=== PATIENT | female | born 1940 | race Caucasian/White ===

== ENCOUNTER 2020-01-10 08:55 | Outpatient (RCR) | payer MEDICARE ==
[~2020-01-10 08:55] MED LIST: BUMEX1 MG PO; Z HYTRIN PO; Z.0.BENTYL10 MG PO; Z.0.LOTREL 5-10 MG1 PO; Z.0.PLAVIX75 MG PO; [UNRECOGNIZED DRUG - OTHER] PO; [UNRECOGNIZED DRUG - OTHER] PO
--- NOTE | 2020-01-10 15:04 | NUR ---
Pt: Jaylin EvangelistaDr: Jamal Grady MD Date: 01/10/2020DOB: 1940 History: Ms. Evangelista is a 79 year old female seen at the [facility] for a Voice Evaluation with a dx of LPRD/muscle tension dysphonia. PMH includes 9 month history of intermittent episodes of hoarseness, PND, and globus sensation with throat clearing. Throat symptoms ore worse in the morning. Pt experiences one episode of GERD per week. Pt has asthma treated with 3 different inhalers. Pt had flexible fiberoptic nasolaryngoscopy performed 08/21/19 revealing changes in LPRD and change in medication, no change in hoarseness. Pt seen by fur weigher 12/16/19 who recommended vocal/speech therapy. Pt states her hoarseness is improved after eliminating peppermints from her diet. Pt is retired and lives at a alf home. She does not have great vocal demand. Ms. Evangelista denied any difficulty swallowing. Current medications include: Lotrel 5/10 mg, Plavix 75 mg, Hytrin, Lasix 40 mg, Albuterol sulfate, monetlulcast 10 mg, Diltxr 180 mg, Symbacourt 160/4.5, Cholestryamine oral, Spriva, Famotadine 40 mg, Pantoproazole 40 mg Patient/family Goal: to eliminate hoarseness when she speaks Acoustic measures: Sound Pressure Level (SPL, acoustic correlate of vocal loudness) measured with a sound level meter at a distance of 40 cm from mouth during 3 voice and speech tasks revealed the following SPL numbers: Average Range Adult Female Norm SUSTAINED VOWELS: 84 dB 80-85 dB READIN dB 80-85 dB CONVERSATION: 78 dB 80-85 dB SUSTAINED VOWEL 3.5-4.0 seconds 15-25 seconds These results represented almost normal conversational vocal SPL levels and reduced vocal intonation. She also has difficulty with the use of her face mask fatiguing her voice lending to quiet speech. Perceptual measures: Ms. Faust functional speech intelligibility is reduced 10% of the time. The patient reported that she is loud enough in conversation 90% of the time. Completion of the Voice Handicap Index (VHI) reveals a perception of a mild handicap primarily in her perceptual scoring. Her hoarseness is not impeding her communication. Oral Motor Examination: An oral motor speech exam revealed the structures and function of Ms. Faust speech mechanism to be within normal limits. Average pitch range for sustained vowel is reduced, a measure was not obtained at this sitting. Normal pitch range for adult females is 225-335 Hz. 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 Voice deficits included reduced loudness, reduced pitch range, and hoarseness, which contributed to a minimal decrease in speech intelligibility. Prognosis: Good for goals secondary to high level of patient motivation Recommendations: 1. It is recommended that Ms. Evangelista participate in the HEP for head and neck stretching, vocal hygiene education, digital laryngeal manipulation, and extended phonation which is comprised of 3 of voice treatment over the next 30 days. Long-Term Goal: Patient will use a clear and relaxed voice to communicate effectively in daily interactions with family and friends with independence. Short-Term Goals: 1. Patient will increase vocal loudness during sustained phonation to reach a target sound pressure level of 80 dB with minimal cues measured at 40 cm from SPL instrument in conversation, reading and extended phonation exercises. 2. Patient will increase length of sustained vowel to 10-15 seconds with minimal assistance. 3. Pt will participate in daily HEP for head and neck stretching independently to relieve laryngeal tension. 4. Pt will participate in digital laryngeal manipulation with [employer] ADDED ASSESSOR to reduce laryngeal tension. 5. Pt will follow vocal hygiene protocol independently.
== END 2020-01-15 ==
LOC: ST 08:55
PROVIDERS: ATTEND Otolaryngology
DX: R49.0 Dysphonia (principal); K21.9 Gastro-esophageal reflux disease without esophagitis

== ENCOUNTER 2020-02-13 11:49 | Outpatient (RCR) | payer MEDICARE | END 2020-02-15 | LOC: ST 11:49 | PROVIDERS: ATTEND Otolaryngology | DX: R49.0 Dysphonia (principal) ==

== ENCOUNTER 2020-07-27 08:04 | Observation (INO) | payer MEDICARE ==
[~2020-07-27] VITALS: Ht 160 cm; Wt 73.0 kg
[~2020-07-27 08:04] MED LIST changes: +DILTIAZEM 24HR180 M3 PO; +FLONASE ALLERG9.9 ML INH; +FUROSEMIDE40 MG PO; +MONTELUKAST SOD10 MG PO; +PANTOPRAZOLE SO40 MG PO; +PRO AIR INH; +SODIUM CHLORIDE 0.9% 500ML 500 ML ONE; +SPIRIVA18 MCG INH; +TRANEXAMIC ACID 1,000 MG/10 ML ML ONE; +VANCOMYCIN HCL 1,000 MG ONE
[2020-07-27] MEDS ORDERED: ROPIVACAINE 246.25 MG, EPINEPHRINE HCL 1:1000 1ML 0.5 MG, CLONIDINE HCL 0.08 MG in SODI... INJ ONE (08:30)
[2020-07-27] MEDS ORDERED: CELECOXIB 200 MG CAP ONE (08:44)
[2020-07-27] MEDS ORDERED: DEXAMETHASONE SOD PHOS 10 MG/1 ML VIAL ONE (08:44)
[2020-07-27] MEDS ORDERED: GABAPENTIN 300 MG CAP ONE (08:45)
[2020-07-27] MEDS ORDERED: BUPIVACAINE 7.5MG/ML /DEXTROSE 82.5MG/ML 2 ML AMP INJ ONE (09:28)
[2020-07-27] MEDS ORDERED: CEFAZOLIN SOD 1 GM/NS 50ML 100 ML IV ONE (09:41)
[2020-07-27] MEDS ORDERED: VANCOMYCIN HCL 1 GM VIAL ONE (09:49)
[2020-07-27] MEDS ORDERED: DOCUSATE SODIUM 100 MG CAP PO PRN (11:30)
[2020-07-27] MEDS ORDERED: ACETAMINOPHEN 650 MG SUPP PR PRN (11:30)
[2020-07-27] MEDS ORDERED: HYDROCODONE/APAP 7.5MG-325MG 1 EA TAB PO PRN (11:30)
[2020-07-27] MEDS ORDERED: ONDANSETRON HCL INJ 2MG/ML 2ML 2 MG/ML VIAL IV PRN (11:30)
[2020-07-27] MEDS ORDERED: KETOROLAC TROMETHAMINE 30 MG/ML VIAL IV PRN (11:30)
[2020-07-27] MEDS ORDERED: HYDROCODONE/APAP 5MG-325MG TAB PO PRN (11:30)
[2020-07-27] MEDS ORDERED: DIPHENHYDRAMINE HCL INJ 50 MG/ML VIAL IV PRN (11:30)
[2020-07-27] MEDS ORDERED: FENTANYL CITRATE/PF 100MCG/2 ML INJ ONE ×2 (12:50→13:01)
[2020-07-27] MEDS ORDERED: KETAMINE HCL INJ 50 MG/ML 10 ML VIAL ONE (13:01)
[2020-07-27] MEDS ORDERED: MIDAZOLAM HCL 2 MG/2 ML VIAL ONE (13:01)
[2020-07-27 14:04] VITALS: BP 129/71
[2020-07-27 14:05] VITALS: BP 129/71
[2020-07-27] MEDS: SODIUM CHLORIDE 0.9% 1000ML 1,000 ML IV SCH ×2 (14:31→21:30)
[2020-07-27] MEDS ORDERED: ACETAMINOPHEN 1000 MG/100 ML IV PRN (15:00)
[2020-07-27 15:54] VITALS: BP 141/71
[2020-07-27] MEDS ORDERED: CELECOXIB 100 MG CAP PO SCH (17:00)
[2020-07-27] MEDS: CEFAZOLIN SOD 1 GM/NS 50ML 50 ML IV SCH (17:15)
[2020-07-27] MEDS ORDERED: PROPOFOL IV EMULSION 10 MG/ML 20 ML VIAL ONE (17:22)
[2020-07-27] MEDS ORDERED: EPHEDRINE SULFATE INJ 50 MG/ML VIAL ONE (17:22)
[2020-07-27] MEDS ORDERED: ONDANSETRON HCL INJ 2MG/ML 2ML 2 MG/ML VIAL ONE (17:22)
[2020-07-27] MEDS ORDERED: LIDOCAINE HCL 2% LOCAL INJ 5 ML SDV VIAL INJ ONE (17:22)
[2020-07-27 19:48] VITALS: BP 157/98
[2020-07-27 19:50] VITALS: BP 132/70
[2020-07-27] MEDS ORDERED: ZOLPIDEM TARTRATE 5 MG TAB PO PRN (21:00)
[2020-07-27] MEDS ORDERED: CHOLESTYRAMINE PO (21:38)
[2020-07-28 00:18] VITALS: BP 133/81
[2020-07-28] MEDS: CEFAZOLIN SOD 1 GM/NS 50ML 50 ML IV SCH ×2 (02:25→09:17)
[2020-07-28] MEDS ORDERED: SODIUM CHLORIDE 0.9% 250ML 250 ML ONE (02:34)
[2020-07-28 04:00] VITALS: BP 134/72
[2020-07-28 05:12] LABS: HEMATOCRIT 33.7 % (34.2-44.1); HEMOGLOBIN 10.6 g/dL (12.0-16.0)
[2020-07-28] MEDS: SODIUM CHLORIDE 0.9% 1000ML 1,000 ML IV SCH (07:30)
[2020-07-28 08:00] VITALS: BP 139/93
[2020-07-28 08:35] VITALS: BP 139/93
[2020-07-28] MEDS ORDERED: PANTOPRAZOLE SOD 40 MG TABEC PO SCH (09:00)
[2020-07-28] MEDS ORDERED: MONTELUKAST SODIUM 10 MG TAB PO SCH (09:00)
[2020-07-28] MEDS ORDERED: TIOTROPIUM 18 MCG INH POWDER INH SCH (09:00)
[2020-07-28] MEDS ORDERED: CLOPIDOGREL BISULFATE 75 MG TAB PO SCH (09:00)
[2020-07-28 11:48] VITALS: BP 150/89
== END 2020-07-28 13:50 | disposition home or self-care (01) ==
LOC: OR 08:04 → PACU V 11:20 → MED/SURG 13:30
PROVIDERS: ADMIT Specialist; ATTEND Specialist
DX: M16.11 Unilateral primary osteoarthritis, right hip (principal); J45.909 Unspecified asthma, uncomplicated; Z86.73 Personal history of transient ischemic attack (TIA), and cerebral infarction without residual deficits; Z85.828 Personal history of other malignant neoplasm of skin; I10 Essential (primary) hypertension; D64.9 Anemia, unspecified; Z20.822 Contact with and (suspected) exposure to COVID-19; Z01.818 Encounter for other preprocedural examination
CPT/HCPCS: 27130; 36415; 72170; 85014; 85018; 86850; 86900; 86920; 97116 ×2; 97162; 97530; G0378 ×2; J0171; J0690 ×2; J1100; J1200; J2001; J2250; J2405; J2704; J2795; J3010; J3370 ×2; J7030; J7040; J7050; S0164; U0002

== ENCOUNTER → 2020-08-11 | Outpatient (CLI) | payer MEDICARE ==
[~2020-08-11] MED LIST changes: +CHOLESTYRAMINE PO; -SODIUM CHLORIDE 0.9% 500ML 500 ML ONE; -TRANEXAMIC ACID 1,000 MG/10 ML ML ONE; -VANCOMYCIN HCL 1,000 MG ONE
== END ==
LOC: RAD 15:07
PROVIDERS: ATTEND Internal Medicine
DX: R60.0 Localized edema (principal)
CPT/HCPCS: 93971

== ENCOUNTER 2023-08-13 10:58 | Emergency (ER) | payer MEDICARE, OTHER ==
[~2023-08-13] VITALS: Ht 157.5 cm; Wt 66.7 kg
[~2023-08-13 10:58] MED LIST changes: +ACETAMINOPHEN325 M1 PO; +AZITHROMYCIN250 MG PO; +BENZONATATE100 MG PO; +CEFUROXIME250 MG PO; +FUROSEMIDE20 MG PO; +IPRATROPIU0.2 MG/1 M NEB; +LEVALBUTER0.63 MG/3 NEB; +MIRALAX17 GM PO; +MUCINEX600 MG PO; +ONDANSETRON ODT4 MG PO; +PREDNISONE10 MG PO; +PULMICORT2 M1 INH
[2023-08-13 13:24] VITALS: BP 174/84; PULSE 74; RESP 17; O2SAT 100
== END 2023-08-13 13:25 | disposition home or self-care (01) ==
LOC: ER 11:09
DX: I10 Essential (primary) hypertension (principal); J45.909 Unspecified asthma, uncomplicated; K21.9 Gastro-esophageal reflux disease without esophagitis
CPT/HCPCS: 99283

== ENCOUNTER 2023-08-18 20:16 | Inpatient (IN) | payer MEDICARE, OTHER ==
[~2023-08-18] VITALS: Ht 157.5 cm; Wt 66.7 kg
[2023-08-18 20:50] LABS: BASOPHILS # (AUTO) 0.1 (0.0-0.1); BASOPHILS % 0.3 % (0.0-1.0); EOSINOPHILS # (AUTO) 0.1 (0.0-0.4); EOSINOPHILS % 0.7 % (0.0-6.0); HEMATOCRIT 35.5 % (34.2-44.1); HEMOGLOBIN 11.9 g/dL (12.0-16.0); LYMPHOCYTES # (AUTO) 2.2 (1.0-3.2); LYMPHOCYTES % 12.1 % (18.0-39.1); MEAN CORPUSCULAR HEMOGLOBIN 29.3 pg (28-32); MEAN CORPUSCULAR HGB CONC 33.5 g/dL (31-35); MEAN CORPUSCULAR VOLUME 87.4 fL (81-99); MONOCYTES # (AUTO) 1.5 (0.2-0.8); MONOCYTES % 8.3 % (4.4-11.3); NEUTROPHILS # (AUTO) 14.2 (2.1-6.9); NEUTROPHILS % 78.1 % (38.7-80.0); PLATELET COUNT 222 x10e3/uL (140-360); RED BLOOD COUNT 4.06 x10e6/uL (3.6-5.1); RED CELL DISTRIBUTION WIDTH 13.3 % (11.7-14.4); WHITE BLOOD COUNT 18.17 x10e3/uL (4.8-10.8)
[2023-08-18 20:58] LABS: BILIRUBIN,URINE NEGATIVE (NEGATIVE); CLARITY,URINE CLEAR (CLEAR); COLOR,URINE YELLOW (YELLOW); GLUCOSE, URINE NEGATIVE (NEGATIVE); KETONES,URINE NEGATIVE (NEGATIVE); LEUKOCYTE ESTERASE ,URINE NEGATIVE (NEGATIVE); NITRITE,URINE NEGATIVE (NEGATIVE); PH,URINE 6 (5 - 7); PROTEIN,URINE DIPSTICK NEGATIVE (NEGATIVE); URINE UROBILINOGEN 0.2 mg/dL (0.2 - 1)
[2023-08-18] MEDS: ACETAMINOPHEN 325 MG TAB PO STA (20:59)
[2023-08-18] MEDS: SODIUM CHLORIDE 0.9% 1000ML 1,000 ML IV STA ×2 (21:00)
[2023-08-18] MEDS: METRONIDAZOLE 500MG/NS 100ML 100 ML IV SCH (21:00)
[2023-08-18 21:08] LABS: ALANINE AMINOTRANSFERASE 17 IU/L (0-55); ALBUMIN 4.1 g/dL (3.5-5.0); ALBUMIN/GLOBULIN RATIO 1.3 (0.8-2.0); ALKALINE PHOSPHATASE 99 IU/L (40-150); ANION GAP 18.4 mmol/L (8-16); BILIRUBIN,TOTAL 1.1 mg/dL (0.2-1.2); BLOOD UREA NITROGEN 20 mg/dL (7-26); BUN/CREATININE RATIO 19 (6-25); CALCIUM 9.2 mg/dL (8.4-10.2); CARBON DIOXIDE 19 mmol/L (22-29); CHLORIDE 97 mmol/L (98-107); CREATINE KINASE 97 IU/L (29-168); CREATININE, SERUM 1.03 mg/dL (0.57-1.11); EST GLOMERULAR FILTRATION RATE 54 ML/MIN (>=60); GLUCOSE 108 mg/dL (74-118); SODIUM 131 mmol/L (136-145); TOTAL PROTEIN 7.2 g/dL (6.5-8.1)
[2023-08-18 21:09] LABS: POTASSIUM 3.4 mmol/L (3.5-5.1)
[2023-08-18] MEDS ORDERED: IOPAMIDOL 370 MG/ML 100 ML INFUS..BTL INJ ONE (21:15)
[2023-08-18 21:16] LABS: TROPONIN I < 0.001 ng/mL (0-0.300)
[2023-08-18 21:20] LABS: WBC,URINE (MAN) 0-5 /HPF (0-5)
[2023-08-18] MEDS ORDERED: SODIUM CHLORIDE FLUSH 10 ML SYR INJ PRN (23:00)
[2023-08-18 23:05] VITALS: PULSE 87; RESP 20; O2SAT 95
[2023-08-18] MEDS: ALBUTEROL/IPRATROPIUM 3 ML NEB NEB ONE (23:45)
[2023-08-19] VITALS (11 sets, daily range): BP systolic 125–168; BP diastolic 61–74; PULSE 76–107; RESP 18–22; TEMP 97.1–101; O2SAT 92–98
[2023-08-19] MEDS ORDERED: FAMOTIDINE40 MG PO (00:28)
[2023-08-19] MEDS ORDERED: HYDROCHLOROTH12.5 MG PO (00:28)
[2023-08-19] MEDS ORDERED: LOSARTAN POTAS100 MG PO (00:28)
[2023-08-19] MEDS ORDERED: CHOLESTYRAMINE L4 GM PO (00:28)
[2023-08-19] MEDS ORDERED: SPIRIVA RESPIMAT4 GM PO (00:28)
[2023-08-19] MEDS ORDERED: CLONIDINE HCL0.1 MG PO (00:28)
[2023-08-19] MEDS ORDERED: FUROSEMIDE40 MG PO (00:28)
[2023-08-19] MEDS ORDERED: FLUTICASONE-SA1 EAC2 PO (00:28)
[2023-08-19] MEDS ORDERED: CLOPIDOGREL75 MG PO (00:28)
[2023-08-19] MEDS ORDERED: DILTIAZEM 24HR180 M1 PO (00:28)
[2023-08-19] MEDS: ALBUTEROL/IPRATROPIUM 3 ML NEB NEB PRN (04:28)
[2023-08-19 06:51] LABS: ALBUMIN 3.3 g/dL (3.5-5.0); ALBUMIN/GLOBULIN RATIO 1.1 (0.8-2.0); CALCIUM 8.7 mg/dL (8.4-10.2); CREATININE, SERUM 0.84 mg/dL (0.57-1.11); TOTAL PROTEIN 6.4 g/dL (6.5-8.1)
[2023-08-19 07:06] LABS: BASOPHILS # (AUTO) 0.1 (0.0-0.1); BASOPHILS % 0.3 % (0.0-1.0); EOSINOPHILS # (AUTO) 0.1 (0.0-0.4); EOSINOPHILS % 0.7 % (0.0-6.0); HEMATOCRIT 32.3 % (34.2-44.1); HEMOGLOBIN 10.8 g/dL (12.0-16.0); LYMPHOCYTES % 12.8 % (18.0-39.1); MEAN CORPUSCULAR HEMOGLOBIN 29.3 pg (28-32); MEAN CORPUSCULAR HGB CONC 33.4 g/dL (31-35); MEAN CORPUSCULAR VOLUME 87.5 fL (81-99); MONOCYTES # (AUTO) 1.5 (0.2-0.8); MONOCYTES % 9.4 % (4.4-11.3); NEUTROPHILS # (AUTO) 12.1 (2.1-6.9); NEUTROPHILS % 76.3 % (38.7-80.0); PLATELET COUNT 196 x10e3/uL (140-360); RED BLOOD COUNT 3.69 x10e6/uL (3.6-5.1); RED CELL DISTRIBUTION WIDTH 13.3 % (11.7-14.4)
[2023-08-19 08:23] LABS: TROPONIN I 0.009 ng/mL (0-0.300)
[2023-08-19] MEDS: PANTOPRAZOLE SOD 40 MG TABEC PO SCH (10:42)
[2023-08-19] MEDS ORDERED: TIOTROPIUM 18 MCG INH POWDER INH SCH (11:00)
[2023-08-19] MEDS: TIOTROPIUM 18 MCG INH POWDER LEFT EAR SCH (11:15)
[2023-08-19] MEDS ORDERED: Azithromycin IV 500 MG 10 ML VIAL ONE (11:41)
[2023-08-19] MEDS: LOSARTAN POTASSIUM 100 MG TAB PO SCH (11:43)
[2023-08-19] MEDS: DILTIAZEM HCL ER 90MG CAPSULE PO SCH (12:53)
[2023-08-19] MEDS: CLOPIDOGREL BISULFATE 75 MG TAB PO SCH (12:54)
[2023-08-19] MEDS: ACETAMINOPHEN 325 MG TAB PO PRN (13:25)
[2023-08-19] MEDS ORDERED: SALMETEROL/FLUTICASONE 500/50 INH SCH (17:00)
[2023-08-19] MEDS: MONTELUKAST SODIUM 10 MG TAB PO SCH (17:06)
[2023-08-19] MEDS: POTASSIUM CHLORIDE 20 MEQ TAB CR PO STA (17:06)
[2023-08-19] MEDS: BUDESONIDE 0.5MG/2 ML NEB INH SCH (20:01)
[2023-08-19] MEDS: SPIRIVA 2.5 MCG INH SCH (23:03)
[2023-08-20] VITALS (10 sets, daily range): BP systolic 117–168; BP diastolic 59–84; PULSE 85–100; RESP 16–20; TEMP 98.5–100.2; O2SAT 92–100
[2023-08-20 07:37] LABS: CREATINE KINASE 42 IU/L (29-168)
[2023-08-20 07:48] LABS: TROPONIN I < 0.001 ng/mL (0-0.300)
[2023-08-20] MEDS ORDERED: albuterol INH (08:40)
[2023-08-20] MEDS ORDERED: ALBUTEROL 90 MCG/ACT INHALER INH PRN ×2 (09:00→09:30)
[2023-08-20] MEDS ORDERED: MONTELUKAST SODIUM 10 MG TAB PO SCH (09:00)
[2023-08-20] MEDS ORDERED: BENADRYL25 M1 PO (14:28)
[2023-08-20] MEDS: FAMOTIDINE 20 MG TAB PO SCH ×2 (21:00)
[2023-08-20] MEDS: CHOLESTYRAMINE 4 GM PACKET PO SCH (21:00)
[2023-08-20] MEDS: TERAZOSIN HCL 5 MG CAP PO SCH (22:40)
[2023-08-20] MEDS: MONTELUKAST SODIUM 10 MG TAB PO SCH (22:41)
[2023-08-20] MEDS: CLONIDINE HCL 0.1 MG TAB PO SCH (22:41)
[2023-08-20] MEDS ORDERED: GUAIFENESIN 200 MG/10 ML UDC PO PRN (23:30)
[2023-08-21] VITALS (8 sets, daily range): BP systolic 118–153; BP diastolic 60–90; PULSE 82–101; RESP 18–20; TEMP 98.1–100.3; O2SAT 93–96
[2023-08-21 06:01] LABS: BASOPHILS % 0.2 % (0.0-1.0); EOSINOPHILS # (AUTO) 0.1 (0.0-0.4); EOSINOPHILS % 0.6 % (0.0-6.0); HEMATOCRIT 30.3 % (34.2-44.1); HEMOGLOBIN 9.7 g/dL (12.0-16.0); LYMPHOCYTES # (AUTO) 2.7 (1.0-3.2); LYMPHOCYTES % 16.2 % (18.0-39.1); MEAN CORPUSCULAR HEMOGLOBIN 28.6 pg (28-32); MEAN CORPUSCULAR VOLUME 89.4 fL (81-99); MONOCYTES # (AUTO) 1.6 (0.2-0.8); MONOCYTES % 9.7 % (4.4-11.3); NEUTROPHILS # (AUTO) 12.3 (2.1-6.9); NEUTROPHILS % 72.8 % (38.7-80.0); PLATELET COUNT 201 x10e3/uL (140-360); RED BLOOD COUNT 3.39 x10e6/uL (3.6-5.1); RED CELL DISTRIBUTION WIDTH 13.2 % (11.7-14.4); WHITE BLOOD COUNT 16.93 x10e3/uL (4.8-10.8)
[2023-08-21 06:10] LABS: ANION GAP 14.1 mmol/L (8-16); CALCIUM 8.5 mg/dL (8.4-10.2); CREATININE, SERUM 0.83 mg/dL (0.57-1.11)
[2023-08-21 06:14] LABS: POTASSIUM 3.1 mmol/L (3.5-5.1)
[2023-08-21] MEDS ORDERED: CLOPIDOGREL BISULFATE 75 MG TAB PO SCH (09:00)
[2023-08-21] MEDS: HYDROCHLOROTHIAZIDE 25 MG TAB PO SCH (09:22)
[2023-08-21] MEDS: DOXYCYCLINE HYCLATE TABLET 100 MG TAB PO SCH (11:53)
[2023-08-21] MEDS ORDERED: POLYETHYLENE GLYCOL 3350 17 GM PACK PO PRN (15:30)
[2023-08-21] MEDS: DOCUSATE SODIUM 100 MG CAP PO SCH (16:52)
[2023-08-22] VITALS (12 sets, daily range): BP systolic 107–166; BP diastolic 56–77; PULSE 71–105; RESP 16–22; TEMP 97.6–101; O2SAT 91–97
[2023-08-22 06:10] LABS: BASOPHILS % 0.2 % (0.0-1.0); EOSINOPHILS # (AUTO) 0.2 (0.0-0.4); EOSINOPHILS % 1.2 % (0.0-6.0); HEMATOCRIT 31.6 % (34.2-44.1); HEMOGLOBIN 10.4 g/dL (12.0-16.0); LYMPHOCYTES # (AUTO) 1.4 (1.0-3.2); LYMPHOCYTES % 10.9 % (18.0-39.1); MEAN CORPUSCULAR HEMOGLOBIN 29.1 pg (28-32); MEAN CORPUSCULAR HGB CONC 32.9 g/dL (31-35); MEAN CORPUSCULAR VOLUME 88.3 fL (81-99); MONOCYTES # (AUTO) 1.3 (0.2-0.8); MONOCYTES % 10.1 % (4.4-11.3); NEUTROPHILS % 77.1 % (38.7-80.0); PLATELET COUNT 189 x10e3/uL (140-360); RED BLOOD COUNT 3.58 x10e6/uL (3.6-5.1); RED CELL DISTRIBUTION WIDTH 13.2 % (11.7-14.4); WHITE BLOOD COUNT 12.99 x10e3/uL (4.8-10.8)
[2023-08-22 06:52] LABS: ANION GAP 15.4 mmol/L (8-16); CALCIUM 8.8 mg/dL (8.4-10.2); CREATININE, SERUM 0.82 mg/dL (0.57-1.11); MAGNESIUM 1.7 MG/DL (1.3-2.1); PHOSPHORUS 1.9 MG/DL (2.3-4.7)
[2023-08-22 06:53] LABS: POTASSIUM 3.4 mmol/L (3.5-5.1)
[2023-08-22] MEDS: MAGNESIUM SULF 1GRAM/DEXTROSE 100 ML IV ONE (09:31)
[2023-08-22] MEDS: SODIUM PHOSPHATE IN 0.9 % NACL 15 MMOL in SODIUM CHLORIDE 0.9% 250ML 250 ML IV ONE (11:11)
[2023-08-22] MEDS: PREDNISONE 20 MG TAB PO ONE (14:49)
[2023-08-22] MEDS: POTASSIUM CHLORIDE 20 MEQ TAB CR PO PRN (14:49)
[2023-08-22] MEDS: AZITHROMYCIN 250 MG TAB PO ONE (14:50)
[2023-08-22] MEDS: CHOLESTYRAMINE 4 GM PACKET PO PRN (18:45)
[2023-08-23] VITALS (9 sets, daily range): BP systolic 111–151; BP diastolic 60–83; PULSE 67–98; RESP 16–19; TEMP 97.3–98.2; O2SAT 95–98
[2023-08-23 06:11] LABS: BASOPHILS % 0.1 % (0.0-1.0); HEMATOCRIT 31.1 % (34.2-44.1); LYMPHOCYTES # (AUTO) 1.4 (1.0-3.2); LYMPHOCYTES % 12.2 % (18.0-39.1); MEAN CORPUSCULAR HEMOGLOBIN 28.4 pg (28-32); MEAN CORPUSCULAR HGB CONC 32.2 g/dL (31-35); MEAN CORPUSCULAR VOLUME 88.4 fL (81-99); MONOCYTES # (AUTO) 0.9 (0.2-0.8); MONOCYTES % 7.7 % (4.4-11.3); NEUTROPHILS # (AUTO) 8.8 (2.1-6.9); NEUTROPHILS % 79.4 % (38.7-80.0); PLATELET COUNT 235 x10e3/uL (140-360); RED BLOOD COUNT 3.52 x10e6/uL (3.6-5.1); RED CELL DISTRIBUTION WIDTH 12.9 % (11.7-14.4); WHITE BLOOD COUNT 11.03 x10e3/uL (4.8-10.8)
[2023-08-23 06:52] LABS: ANION GAP 13.5 mmol/L (8-16); CALCIUM 8.4 mg/dL (8.4-10.2); CREATININE, SERUM 0.8 mg/dL (0.57-1.11); PHOSPHORUS 3.3 MG/DL (2.3-4.7); POTASSIUM 3.5 mmol/L (3.5-5.1)
[2023-08-23] MEDS: AZITHROMYCIN 250 MG TAB PO SCH (08:53)
[2023-08-23] MEDS: DIPHENHYDRAMINE HCL 25 MG CAP PO PRN (08:53)
[2023-08-23] MEDS: POTASSIUM CHLORIDE 20 MEQ TAB CR PO ONE (12:06)
[2023-08-23] MEDS: ENOXAPARIN SOD INJ 40 MG/0.4 ML SYR SC SCH (17:43)
[2023-08-24] VITALS (7 sets, daily range): BP systolic 107–156; BP diastolic 47–78; PULSE 75–88; RESP 18–19; TEMP 97.6–98.2; O2SAT 96–100
[2023-08-24 09:34] LABS: BASOPHILS # (AUTO) 0.1 (0.0-0.1); BASOPHILS % 0.5 % (0.0-1.0); EOSINOPHILS # (AUTO) 0.1 (0.0-0.4); HEMATOCRIT 33.4 % (34.2-44.1); HEMOGLOBIN 10.8 g/dL (12.0-16.0); LYMPHOCYTES # (AUTO) 2.6 (1.0-3.2); MEAN CORPUSCULAR HEMOGLOBIN 28.6 pg (28-32); MEAN CORPUSCULAR HGB CONC 32.3 g/dL (31-35); MEAN CORPUSCULAR VOLUME 88.6 fL (81-99); MONOCYTES # (AUTO) 1.1 (0.2-0.8); MONOCYTES % 8.3 % (4.4-11.3); NEUTROPHILS # (AUTO) 9.2 (2.1-6.9); NEUTROPHILS % 69.5 % (38.7-80.0); PLATELET COUNT 314 x10e3/uL (140-360); RED BLOOD COUNT 3.77 x10e6/uL (3.6-5.1); RED CELL DISTRIBUTION WIDTH 13.2 % (11.7-14.4); WHITE BLOOD COUNT 13.18 x10e3/uL (4.8-10.8)
[2023-08-24 09:53] LABS: ANION GAP 14.6 mmol/L (8-16); CREATININE, SERUM 0.94 mg/dL (0.57-1.11); POTASSIUM 3.6 mmol/L (3.5-5.1)
[2023-08-24] MEDS ORDERED: AZITHROMYCIN250 MG PO (16:26)
[2023-08-24] MEDS ORDERED: DOXYCYCLINE HY100 MG PO (16:26)
== END 2023-08-24 18:10 | disposition home or self-care (01) | DRG 194 ==
LOC: ER 20:22 → ERHOLD 22:46 → MED/SURG3 08-19 00:12
PROVIDERS: ADMIT Internal Medicine; ATTEND Internal Medicine
DX: J18.9 Pneumonia, unspecified organism (principal); E87.1 Hypo-osmolality and hyponatremia; I47.10 Supraventricular tachycardia, unspecified; J44.0 Chronic obstructive pulmonary disease with (acute) lower respiratory infection; K44.9 Diaphragmatic hernia without obstruction or gangrene; I13.10 Hypertensive heart and chronic kidney disease without heart failure, with stage 1 through stage 4 chronic kidney disease, or unspecified chronic kidney disease; I16.0 Hypertensive urgency; N18.30 Chronic kidney disease, stage 3 unspecified; M06.9 Rheumatoid arthritis, unspecified; K21.9 Gastro-esophageal reflux disease without esophagitis; I45.10 Unspecified right bundle-branch block; R53.81 Other malaise; K58.9 Irritable bowel syndrome, unspecified; M16.11 Unilateral primary osteoarthritis, right hip; F32.A Depression, unspecified; Z11.52 Encounter for screening for COVID-19; Z79.02 Long term (current) use of antithrombotics/antiplatelets; Z79.52 Long term (current) use of systemic steroids; Z79.899 Other long term (current) drug therapy; Z86.73 Personal history of transient ischemic attack (TIA), and cerebral infarction without residual deficits; Z85.828 Personal history of other malignant neoplasm of skin; Z88.0 Allergy status to penicillin; Z88.2 Allergy status to sulfonamides; Z88.6 Allergy status to analgesic agent; Z88.5 Allergy status to narcotic agent; Z88.8 Allergy status to other drugs, medicaments and biological substances; Z90.49 Acquired absence of other specified parts of digestive tract; Z90.710 Acquired absence of both cervix and uterus; Z82.49 Family history of ischemic heart disease and other diseases of the circulatory system
CPT/HCPCS: 36415; 71045; 71260; 74177; 80048; 80053; 81001; 82550; 83605; 83690; 83735; 84100; 84484; 85025; 87040; 87070; 87186; 87205; 87400; 87420; 93005; 94667; 94799; 99284; J1650; J3475; J7030; J7050; J7512; Q9967; U0002

== ENCOUNTER 2024-08-03 10:35 | Emergency (ER) | payer MEDICARE, OTHER ==
[~2024-08-03] VITALS: Ht 157.5 cm; Wt 63.0 kg
[~2024-08-03 10:35] MED LIST changes: +BENADRYL25 M1 PO; +CHOLESTYRAMINE L4 GM PO; +CLONIDINE HCL0.1 MG PO; +CLOPIDOGREL75 MG PO; +DILTIAZEM 24HR180 M1 PO; +DOXYCYCLINE HY100 MG PO; +FAMOTIDINE40 MG PO; +FLUTICASONE-SA1 EAC2 PO; +HYDROCHLOROTH12.5 MG PO; +LOSARTAN POTAS100 MG PO; +SPIRIVA RESPIMAT4 GM PO; +albuterol INH
[2024-08-03] MEDS: SODIUM CHLORIDE 0.9% 1000ML 1,000 ML IV ONE (11:50)
[2024-08-03] MEDS: CYCLOBENZAPRINE HCL 10 MG TAB PO ONE (11:50)
[2024-08-03] MEDS: KETOROLAC TROMETHAMINE 30 MG/ML VIAL IV ONE (11:51)
[2024-08-03 12:17] LABS: INR 0.96; PARTIAL THROMBOPLASTIN TIME 32.9 seconds (23.8-35.5); PROTHROMBIN TIME 13.4 seconds (11.9-14.5)
[2024-08-03 12:22] LABS: HEMATOCRIT 35.7 % (34.2-44.1); HEMOGLOBIN 11.6 g/dL (12.0-16.0); MEAN CORPUSCULAR HEMOGLOBIN 27.4 pg (28-32); MEAN CORPUSCULAR HGB CONC 32.5 g/dL (31-35); MEAN CORPUSCULAR VOLUME 84.2 fL (81-99); RED BLOOD COUNT 4.24 x10e6/uL (3.6-5.1); WHITE BLOOD COUNT 13.95 x10e3/uL (4.8-10.8)
[2024-08-03 12:23] LABS: BASOPHILS % 0.3 % (0.0-1.0); EOSINOPHILS % 0.7 % (0.0-6.0); LYMPHOCYTES % 9.6 % (18.0-39.1); PLATELET COUNT 271 x10e3/uL (140-360); RED CELL DISTRIBUTION WIDTH 14.5 % (11.7-14.4)
[2024-08-03 12:24] LABS: EOSINOPHILS # (AUTO) 0.1 (0.0-0.4); LYMPHOCYTES # (AUTO) 1.3 (1.0-3.2); MONOCYTES # (AUTO) 1.4 (0.2-0.8); NEUTROPHILS # (AUTO) 11.1 (2.1-6.9)
[2024-08-03 13:09] LABS: ANION GAP 18.5 mmol/L (8-16); POTASSIUM 3.5 mmol/L (3.5-5.1)
[2024-08-03 13:10] LABS: CALCIUM 9.6 mg/dL (8.4-10.2); CREATININE, SERUM 0.79 mg/dL (0.57-1.11); TOTAL PROTEIN 7.2 g/dL (6.5-8.1)
[2024-08-03] MEDS ORDERED: IOPAMIDOL 370 MG/ML 100 ML INFUS..BTL INJ ONE (13:15)
[2024-08-03 13:19] LABS: ALBUMIN 3.6 g/dL (3.5-5.0)
[2024-08-03 14:03] VITALS: PULSE 84; RESP 16; TEMP 98.2; O2SAT 99
[2024-08-03] MEDS ORDERED: CYCLOBENZAPRINE10 MG PO (15:34)
== END 2024-08-03 16:16 | disposition home or self-care (01) ==
LOC: ER 11:18
DX: M54.50 Low back pain, unspecified (principal); S32.030A Wedge compression fracture of third lumbar vertebra, initial encounter for closed fracture; I10 Essential (primary) hypertension; E78.5 Hyperlipidemia, unspecified; K21.9 Gastro-esophageal reflux disease without esophagitis; J45.909 Unspecified asthma, uncomplicated; G89.29 Other chronic pain; Z87.19 Personal history of other diseases of the digestive system
CPT/HCPCS: 36415; 72132; 80053; 85025; 85610; 85730; 99284; J1885; J7030; Q9967

== ENCOUNTER 2024-08-24 21:18 | Emergency (ER) | payer MEDICARE, OTHER ==
[~2024-08-24] VITALS: Ht 157.5 cm; Wt 62.6 kg
[~2024-08-24 21:18] MED LIST changes: +CYCLOBENZAPRINE10 MG PO
[2024-08-24 22:19] VITALS: TEMP 97.8
[2024-08-24 22:56] LABS: BASOPHILS % 0.3 % (0.0-1.0); EOSINOPHILS # (AUTO) 0.2 (0.0-0.4); EOSINOPHILS % 2.2 % (0.0-6.0); HEMATOCRIT 36.4 % (34.2-44.1); HEMOGLOBIN 11.6 g/dL (12.0-16.0); LYMPHOCYTES % 21.1 % (18.0-39.1); MEAN CORPUSCULAR HEMOGLOBIN 27.1 pg (28-32); MEAN CORPUSCULAR HGB CONC 31.9 g/dL (31-35); MONOCYTES # (AUTO) 0.9 (0.2-0.8); MONOCYTES % 9.3 % (4.4-11.3); NEUTROPHILS # (AUTO) 6.2 (2.1-6.9); NEUTROPHILS % 66.7 % (38.7-80.0); PLATELET COUNT 285 x10e3/uL (140-360); RED BLOOD COUNT 4.28 x10e6/uL (3.6-5.1); RED CELL DISTRIBUTION WIDTH 14.1 % (11.7-14.4); WHITE BLOOD COUNT 9.25 x10e3/uL (4.8-10.8)
[2024-08-24 23:16] LABS: ALBUMIN 3.7 g/dL (3.5-5.0); ALBUMIN/GLOBULIN RATIO 1.1 (0.8-2.0); ANION GAP 15.5 mmol/L (8-16); BILIRUBIN,TOTAL 0.4 mg/dL (0.2-1.2); CALCIUM 8.8 mg/dL (8.4-10.2); CREATININE, SERUM 0.8 mg/dL (0.57-1.11); POTASSIUM 3.5 mmol/L (3.5-5.1); TOTAL PROTEIN 7.2 g/dL (6.5-8.1)
[2024-08-24 23:22] LABS: TROPONIN I 0.219 ng/mL (0-0.300)
[2024-08-24] MEDS: FAMOTIDINE 20 MG/2 ML VIAL IV STA (23:24)
[2024-08-24] MEDS: ONDANSETRON HCL INJ 2MG/ML 2ML 2 MG/ML VIAL IV STA (23:25)
[2024-08-24] MEDS: SODIUM CHLORIDE 0.9% 1000ML 1,000 ML IV STA (23:25)
[2024-08-24 23:42] LABS: CLARITY,URINE CLEAR (CLEAR); LEUKOCYTE ESTERASE ,URINE TRACE (NEGATIVE); NITRITE,URINE NEGATIVE (NEGATIVE); PH,URINE 7 (5 - 7)
[2024-08-24 23:43] LABS: BILIRUBIN,URINE NEGATIVE (NEGATIVE); EPITHELIAL CELLS,URINE FEW /LPF; GLUCOSE, URINE NEGATIVE (NEGATIVE); KETONES,URINE NEGATIVE (NEGATIVE); PROTEIN,URINE DIPSTICK NEGATIVE (NEGATIVE); RBC,URINE 0-5 /HPF (0-5); URINE UROBILINOGEN 0.2 mg/dL (0.2 - 1); WBC,URINE (MAN) 0-5 /HPF (0-5)
[2024-08-24 23:44] LABS: COLOR,URINE COLORLESS (YELLOW)
[2024-08-25 00:13] LABS: BACTERIA,URINE MANY /HPF
[2024-08-25] MEDS ORDERED: IOPAMIDOL 370 MG/ML 100 ML INFUS..BTL INJ ONE (00:16)
[2024-08-25 02:26] LABS: TROPONIN I 0.605 ng/mL (0-0.300)
[2024-08-25] MEDS ORDERED: ASPIRIN 325 MG TAB PO STA (02:37)
[2024-08-25] MEDS: CLOPIDOGREL BISULFATE 75 MG TAB PO STA (02:55)
[2024-08-25] MEDS: TRAMADOL HCL 50 MG TAB PO STA (02:56)
[2024-08-25 03:20] VITALS: PULSE 75; RESP 18; O2SAT 96
[2024-08-25 03:59] LABS: INR 0.91; PARTIAL THROMBOPLASTIN TIME 37.1 seconds (23.8-35.5); PROTHROMBIN TIME 12.8 seconds (11.9-14.5)
== END 2024-08-25 04:38 | disposition other institution (70) ==
LOC: ER 21:24
DX: R10.13 Epigastric pain (principal); I21.4 Non-ST elevation (NSTEMI) myocardial infarction; I16.0 Hypertensive urgency; I10 Essential (primary) hypertension; R04.0 Epistaxis; I45.10 Unspecified right bundle-branch block; R11.0 Nausea; R53.1 Weakness; R53.81 Other malaise; E78.5 Hyperlipidemia, unspecified; J45.909 Unspecified asthma, uncomplicated; K21.9 Gastro-esophageal reflux disease without esophagitis; M54.9 Dorsalgia, unspecified; G89.29 Other chronic pain; Z87.19 Personal history of other diseases of the digestive system
CPT/HCPCS: 36415; 74177; 80053; 81001; 82550; 83690; 84484; 85025; 85610; 85730; 93005; 99284; J1308; J2405; J7030; Q9967